=== PATIENT | male | born 1975 | race Hispanic/Latino ===

== ENCOUNTER → 2024-11-21 | Outpatient (CLI) | payer BC ==
--- NOTE | 2024-11-21 14:20 | HMCSR ---
APPROVED REPORT EXAM: Two-dimensional and M-mode echocardiogram with Doppler and color Doppler. INDICATION ICD: Atrioventricular block, first degree I44.0 2D Dimensions RVDd4.3 cmLVEF(%)57.4 (>50%)LVED Vol(simp.)131.3 mL IVSd0.8 (0.7-1.1cm)FS(%)30 %LVES Vol(simp.)55.7 mL LVDd5.0 (3.8-5.6cm)LA (2D)2.8 (1.6-4.0cm)LVEF(%, simp.)58 % PWd1.1 (0.7-1.1cm)Ao Root(2D)3.2 (2.0-3.7cm)LA ESV INDEX (BP)23.00 mL/m2 LVDs3.5 (2.5-4.0cm)LVOT diam2.3 (1.8-2.4cm) IVC diam2.1 cm M-Mode Dimensions EPSS1.3 cm LA (MM)3.3 (1.6-4.0cm) Ao Root(MM)3.1 (2.0-3.7cm) Aortic Valve AoV Vmax1.5 m/Saman Peak GR8.9 mmHgLVOT Vmax1.4 m/s AoV VTI0.3 mAo Mean GR4.5 mmHgLVOT VTI0.27 m MIGUEL (VMAX)3.77 cm2AVA (VTI) 3.6 cm2 Mitral Valve MV E Vmax90.3 cm/sDECEL Nyor929 ms MV A Vmax82.7 cm/sP 1/2 T74 ms E/A ratio1.1MVA (PHT)3.0 cm2 TDI E/E' Ftrzio04.8E/E' Lateral7.9 Medial E' Peak V8.34 cm/sLateral E' Peak V11.41 cm/s Pulmonary Valve PV Vmax1.4 m/sPV VTI0.26 mPV Mean GR3.5 mmHg PV Peak GR7.9 mmHg Tricuspid Valve TR Vmax1.4 m/sRAP (EST) 3 bdDoJFYT63.9 mmHg TR Peak GR7.9 mmHg Left Ventricle The left ventricle is normal size. No regional wall motion abnormalities noted. There is normal left ventricular wall thickness. LVEF is 55-60%. Diastolic function within normal parameters Right Ventricle The right ventricle is mildly dilated. The right ventricular systolic function is normal. Atria The left atrium size is normal. The right atrium size is normal. Aortic Valve The aortic valve is normal in structure. No aortic regurgitation is present. There is no aortic valvu lar stenosis. Mitral Valve The mitral valve is normal in structure. There is mild mitral valve regurgitation noted. There is no mitral valve stenosis. Tricuspid Valve The tricuspid valve is normal in structure. There is no tricuspid valve regurgitation noted. Pulmonic Valve The pulmonary valve is normal in structure. There is no pulmonic valvular regurgitation. Great Vessels The aortic root is normal in size. The IVC is normal in size and collapses >50% with inspiration. Pericardium There is no pericardial effusion. Other Information Quality : AdequateRhythm : NSR Conclusion LVEF is 55-60%. Diastolic function within normal parameters Right ventricle is mildly dilated. Mild mitral regurgitation
== END | disposition home or self-care (01) ==
LOC: RAH 12:56
PROVIDERS: ATTEND Family Medicine
DX: I34.0 Nonrheumatic mitral (valve) insufficiency (principal); I44.0 Atrioventricular block, first degree
CPT/HCPCS: 93306

== ENCOUNTER → 2024-12-06 | Outpatient (CLI) | payer BC ==
[2024-12-06 22:49] VITALS: PULSE 66; RESP 12
[2024-12-06 23:00] VITALS: PULSE 65; RESP 18
[2024-12-06 23:30] VITALS: PULSE 60; RESP 14
[2024-12-07] VITALS (12 sets, daily range): PULSE 55–66; RESP 10–14
== END | disposition home or self-care (01) ==
LOC: EDUNIT# 20:30 → SLP 20:35
PROVIDERS: ATTEND Family Medicine
DX: R40.0 Somnolence (principal)
CPT/HCPCS: 95810